=== PATIENT | male | born 1990 | race African-American/Black ===

== ENCOUNTER 2017-01-06 08:36 | Emergency (ER) | payer MEDICAID ==
[~2017-01-06] VITALS: Ht 180.3 cm; Wt 110.0 kg
[2017-01-06 08:59] VITALS: BP 181/124
== END 2017-01-06 09:40 | disposition left against medical advice (07) ==
LOC: ER 08:36
DX: R51 Headache (principal); R42 Dizziness and giddiness; Z53.21 Procedure and treatment not carried out due to patient leaving prior to being seen by health care provider

== ENCOUNTER 2017-01-22 00:39 | Emergency (ER) | payer MEDICAID ==
[~2017-01-22] VITALS: Ht 180.3 cm; Wt 105.0 kg
[2017-01-22] MEDS ORDERED: ONDANSETRON HCL 4MG/2ML VIAL IV STA (01:53)
[2017-01-22] MEDS ORDERED: MORPHINE SULFATE 4 MG/ML CPJ (NOT FOR IM USE) IV STA (01:53)
[2017-01-22] MEDS ORDERED: LABETALOL 5MG/ML SYR 20 MG/4 ML SYRINGE IV ONE (02:00)
[2017-01-22] MEDS ORDERED: DIPHENHYDRAMINE 50MG/ML VIAL IV ONE (02:00)
[2017-01-22] MEDS ORDERED: CLONIDINE 0.1MG TABLET PO STA (02:27)
[2017-01-22] MEDS ORDERED: HYDROCODONE/ACETAMINOPHEN 10/325MG TABLET PO ONE (02:30)
[2017-01-22 03:27] LABS: EOSINOPHILS % 2.3 % (0.0-5.0); HEMATOCRIT. 40.8 % (42.0-52.0); HEMOGLOBIN. 14.3 g/dL (14.0-18.0); LYMPHOCYTES % 38.3 % (20.0-50.0); MEAN CORPUSCULAR VOLUME 85.9 fL (80.0-94.0); MONOCYTES % 8.3 % (2.0-8.0); NEUTROPHILS % 50.1 % (40.0-76.0); PLATELET 227 x1000/uL (130-400); RED BLOOD CELL COUNT 4.75 mill/uL (4.7-6.1); RED CELL DISTRIBUTION WIDTH 13.8 % (11.6-14.6)
[2017-01-22 03:36] LABS: INR 1.1; PROTHROMBIN TIME 10.9 sec (9.4-11.6)
[2017-01-22 03:41] LABS: CARBON DIOXIDE 31 mEq/L (21-32); CHLORIDE 106 mEq/L (98-107); ETHANOL BLOOD < 10 mg/dL
[2017-01-22 03:55] LABS: AMMONIA 35 uMol/L (<32)
[2017-01-22 05:00] VITALS: BP 145/85
== END 2017-01-22 05:00 | disposition home or self-care (01) ==
LOC: ER 00:39
DX: I10 Essential (primary) hypertension (principal); F17.200 Nicotine dependence, unspecified, uncomplicated; R51 Headache; I51.7 Cardiomegaly; F12.10 Cannabis abuse, uncomplicated; Z88.5 Allergy status to narcotic agent
CPT/HCPCS: 36415; 70450; 71010; 80053; 82140; 85025; 85610; 93005; 99285; G0482; Z7610

== ENCOUNTER 2017-01-28 15:25 | Emergency (ER) | payer MEDICAID ==
[~2017-01-28] VITALS: Ht 180.3 cm; Wt 104.0 kg
[2017-01-28 15:56] VITALS: BP 169/115
[2017-01-28] MEDS ORDERED: AZITHROMYCIN 500 MG TABLET PO ONE (21:45)
[2017-01-28] MEDS ORDERED: CEFTRIAXONE SODIUM 250 MG/VIAL IM ONE (21:45)
[2017-01-28 21:57] LABS: BASOPHILS % 0.8 % (0.0-2.0); EOSINOPHILS % 1.9 % (0.0-5.0); HEMOGLOBIN. 13.6 g/dL (14.0-18.0); LYMPHOCYTES % 29.5 % (20.0-50.0); MEAN CORPUSCULAR HEMOGLOBIN 29.2 pg (28.0-32.0); MEAN PLATELET VOLUME 8.9 fl (7.4-10.4); MONOCYTES % 8.1 % (2.0-8.0); NEUTROPHILS % 59.7 % (40.0-76.0); PLATELET 243 x1000/uL (130-400); RED BLOOD CELL COUNT 4.65 mill/uL (4.7-6.1); RED CELL DISTRIBUTION WIDTH 13.6 % (11.6-14.6)
[2017-01-28] MEDS ORDERED: LIDOCAINE HCL 1% 20ML VIAL (Pyxis) INJ MC ONE (22:00)
[2017-01-28 22:12] LABS: CARBON DIOXIDE 30 mEq/L (21-32); CHLORIDE 106 mEq/L (98-107)
== END 2017-01-29 01:26 | disposition home or self-care (01) ==
LOC: ER 15:25
DX: Z20.2 Contact with and (suspected) exposure to infections with a predominantly sexual mode of transmission (principal); I10 Essential (primary) hypertension; F17.210 Nicotine dependence, cigarettes, uncomplicated; F12.10 Cannabis abuse, uncomplicated; Z88.5 Allergy status to narcotic agent
CPT/HCPCS: 36415; 80048; 85025; 96372; 99284; J0696; J3490; Z7610; 87491; 87591

== ENCOUNTER 2017-02-09 05:39 | Emergency (ER) | payer MEDICAID ==
[~2017-02-09] VITALS: Ht 180.3 cm; Wt 105.0 kg
[2017-02-09] MEDS ORDERED: HYDROCODONE/ACETAMINOPHEN 5/325MG TABLET PO ONE (07:00)
[2017-02-09] MEDS ORDERED: CYCLOBENZAPRINE 10MG TABLET PO ONE (07:45)
[2017-02-09] MEDS ORDERED: ONDANSETRON 4MG ODT PO ONE (07:45)
[2017-02-09 08:06] VITALS: BP 142/89
== END 2017-02-09 08:26 | disposition home or self-care (01) ==
LOC: ER 05:39
DX: S20.229A Contusion of unspecified back wall of thorax, initial encounter (principal); I10 Essential (primary) hypertension; F17.200 Nicotine dependence, unspecified, uncomplicated; F12.10 Cannabis abuse, uncomplicated; V49.88XA Car occupant (driver) (passenger) injured in other specified transport accidents, initial encounter; Y93.89 Activity, other specified; Y92.89 Other specified places as the place of occurrence of the external cause; Y99.8 Other external cause status
CPT/HCPCS: 72070; 72100; 99284; Q0162; Z7610

== ENCOUNTER 2017-03-19 23:20 | Emergency (ER) | payer MEDICAID ==
[~2017-03-19] VITALS: Ht 180.3 cm; Wt 104.0 kg
[2017-03-20 07:30] VITALS: BP 157/89
[2017-03-20 08:28] LABS: CHLORIDE 104 mEq/L (98-107)
[2017-03-20 08:33] LABS: CARBON DIOXIDE 26 mEq/L (21-32)
== END 2017-03-20 08:33 | disposition home or self-care (01) ==
LOC: ER 23:20
DX: I10 Essential (primary) hypertension (principal); R07.89 Other chest pain; R51 Headache; Z88.5 Allergy status to narcotic agent
CPT/HCPCS: 36415; 80048; 82962; 93005; 99285

== ENCOUNTER 2017-03-28 | Emergency (ER) | payer MEDICAID ==
[~2017-03-28] VITALS: Ht 180.3 cm; Wt 105.0 kg
[2017-03-28] MEDS ORDERED: PROCHLORPERAZINE MALEATE 10MG TABLET PO ONE (03:30)
[2017-03-28] MEDS ORDERED: DEXAMETHASONE 10 MG/ML VIAL IV ONE (03:30)
[2017-03-28] MEDS ORDERED: SODIUM CHLORIDE 0.9% 1,000 ML IV ONE (03:30)
[2017-03-28] MEDS ORDERED: KETOROLAC 30MG/ML VIAL IV ONE (03:30)
[2017-03-28 05:55] VITALS: BP 133/89
== END 2017-03-28 05:58 | disposition home or self-care (01) ==
LOC: ER
DX: G43.909 Migraine, unspecified, not intractable, without status migrainosus (principal); I10 Essential (primary) hypertension; F17.210 Nicotine dependence, cigarettes, uncomplicated; Z88.5 Allergy status to narcotic agent
CPT/HCPCS: 96361; 96374; 96375; 99285; J1100; J1885; J7030; Z7610; Q0164

== ENCOUNTER 2017-04-14 00:48 | Emergency (ER) | payer MEDICAID ==
[~2017-04-14] VITALS: Ht 180.3 cm; Wt 105.0 kg
[2017-04-14 01:10] VITALS: BP 172/117
== END 2017-04-14 04:00 | disposition left against medical advice (07) ==
LOC: ER 03:11
DX: R51 Headache (principal); Z53.21 Procedure and treatment not carried out due to patient leaving prior to being seen by health care provider

== ENCOUNTER 2017-05-08 22:21 | Emergency (ER) | payer MEDICAID ==
[2017-05-09] MEDS ORDERED: LISI-186 PO (05:01)
== END 2017-05-09 00:32 | disposition left against medical advice (07) ==
LOC: ER 23:23
DX: Z53.21 Procedure and treatment not carried out due to patient leaving prior to being seen by health care provider (principal)

== ENCOUNTER 2017-05-09 04:02 | Emergency (ER) | payer MEDICAID ==
[~2017-05-09] VITALS: Ht 180.3 cm; Wt 105.0 kg
[2017-05-09] MEDS ORDERED: LISI-186 PO (05:01)
[2017-05-09] MEDS ORDERED: ACETAMINOPHEN 500MG TABLET PO ONE (08:45)
[2017-05-09 09:01] LABS: BASOPHILS % 0.9 % (0.0-2.0); EOSINOPHILS % 2.3 % (0.0-5.0); HEMATOCRIT. 45.4 % (42.0-52.0); HEMOGLOBIN. 15.1 g/dL (14.0-18.0); MEAN CORPUSCULAR HEMOGLOBIN 28.6 pg (28.0-32.0); MEAN PLATELET VOLUME 8.9 fl (7.4-10.4); MONOCYTES % 7.7 % (2.0-8.0); NEUTROPHILS % 54.1 % (40.0-76.0); PLATELET 255 x1000/uL (130-400); RED BLOOD CELL COUNT 5.28 mill/uL (4.7-6.1)
[2017-05-09 09:11] LABS: CHLORIDE 106 mEq/L (98-107)
[2017-05-09] MEDS ORDERED: CLONIDINE 0.1MG TABLET PO ONE (09:45)
[2017-05-09 10:40] VITALS: BP 165/99
== END 2017-05-09 11:07 | disposition home or self-care (01) ==
LOC: ER 10:46
DX: G44.89 Other headache syndrome (principal); I10 Essential (primary) hypertension; F12.90 Cannabis use, unspecified, uncomplicated; Z88.5 Allergy status to narcotic agent
CPT/HCPCS: 36415; 80053; 85025; 99284

== ENCOUNTER 2017-06-05 00:39 | Emergency (ER) | payer MEDICAID ==
[~2017-06-05] VITALS: Ht 180.3 cm; Wt 112.0 kg
[~2017-06-05 00:39] MED LIST: LISI-186 PO
[2017-06-05] MEDS ORDERED: ACETAMINOPHEN 325MG TABLET PO ONE (01:15)
[2017-06-05 05:30] VITALS: BP 151/108
== END 2017-06-05 05:45 | disposition home or self-care (01) ==
LOC: ER 00:39
DX: I10 Essential (primary) hypertension (principal); R51 Headache; M25.531 Pain in right wrist; F17.200 Nicotine dependence, unspecified, uncomplicated; Z88.5 Allergy status to narcotic agent
CPT/HCPCS: 73110; 99284; Z7610

== ENCOUNTER 2017-08-17 00:04 | Emergency (ER) | payer MEDICAID ==
[~2017-08-17] VITALS: Ht 180.3 cm; Wt 114.0 kg
[2017-08-17] MEDS ORDERED: LISINOPRIL 10MG TABLET PO ONE (02:30)
[2017-08-17] MEDS ORDERED: METOCLOPRAMIDE HCL 10MG TABLET PO ONE (02:30)
[2017-08-17] MEDS ORDERED: IBUPROFEN 800MG TABLET PO ONE (02:30)
[2017-08-17 03:12] VITALS: BP 152/92
== END 2017-08-17 03:12 | disposition home or self-care (01) ==
LOC: ER 00:04
DX: I10 Essential (primary) hypertension (principal); Z88.5 Allergy status to narcotic agent
CPT/HCPCS: 99284; Z7610; J8597

== ENCOUNTER 2017-11-26 01:58 | Emergency (ER) | payer MEDICAID ==
[~2017-11-26] VITALS: Ht 180.3 cm; Wt 109.0 kg
[2017-11-26] MEDS ORDERED: KETOROLAC 60MG/2ML VIAL IM ONE (02:45)
[2017-11-26 04:00] VITALS: BP 141/81
== END 2017-11-26 04:00 | disposition home or self-care (01) ==
LOC: ER 01:58
DX: M54.9 Dorsalgia, unspecified (principal); I10 Essential (primary) hypertension; F17.200 Nicotine dependence, unspecified, uncomplicated; F12.10 Cannabis abuse, uncomplicated; Z88.6 Allergy status to analgesic agent
CPT/HCPCS: 96372; 99283; J1885

== ENCOUNTER 2018-10-15 17:30 | Emergency (ER) | payer MEDICAID ==
[~2018-10-15] VITALS: Ht 180.3 cm; Wt 110.0 kg
[2018-10-15] MEDS ORDERED: SODIUM CHLORIDE 0.9% 1,000 ML IV ONE (18:32)
[2018-10-15] MEDS ORDERED: KETOROLAC 30MG/ML VIAL IV STA (18:32)
[2018-10-15] MEDS ORDERED: METOCLOPRAMIDE HCL 10MG/2ML VIAL IV ONE (18:45)
[2018-10-15 19:01] LABS: BASOPHILS % 1.1 % (0.0-2.0); EOSINOPHILS % 1.3 % (0.0-5.0); HEMATOCRIT. 47.5 % (42.0-52.0); HEMOGLOBIN. 16.4 g/dL (14.0-18.0); MEAN CORPUSCULAR HEMOGLOBIN 29.5 pg (28.0-32.0); MEAN CORPUSCULAR VOLUME 85.7 fL (80.0-94.0); MEAN PLATELET VOLUME 9.2 fl (7.4-10.4); MONOCYTES % 6.7 % (2.0-8.0); NEUTROPHILS % 56.9 % (40.0-76.0); PLATELET 271 x1000/uL (130-400); RED BLOOD CELL COUNT 5.55 mill/uL (4.7-6.1); RED CELL DISTRIBUTION WIDTH 13.3 % (11.6-14.6)
[2018-10-15 19:07] LABS: CHLORIDE 105 mEq/L (98-107)
[2018-10-15 19:12] LABS: ETHANOL BLOOD < 10 mg/dL
[2018-10-15 19:55] LABS: CLARITY URINE CLEAR (CLEAR); COLOR URINE YELLOW (YELLOW); KETONES URINE 1+ (NEGATIVE); LEUKOCYTE ESTERASE URINE NEGATIVE (NEGATIVE); NITRITE URINE NEGATIVE (NEGATIVE); OCCULT BLOOD URINE TRACE (NEGATIVE); PROTEIN URINE NEGATIVE (NEGATIVE); SPECIFIC GRAVITY URINE 1.016 (1.005-1.030); UROBILINOGEN URINE 0.2 E.U./dL (0.2-1.0)
[2018-10-15 19:59] VITALS: BP 162/98
[2018-10-15 20:27] LABS: *AMPHETAMINES SCREEN URINE NEGATIVE (NEGATIVE); *BARBITURATES SCREEN URINE NEGATIVE (NEGATIVE); *BENZODIAZEPINES SCREEN URINE NEGATIVE (NEGATIVE)
[2018-10-15 20:28] LABS: *COCAINE SCREEN URINE NEGATIVE (NEGATIVE); CANNABINOID URINE SCREEN PRESUMTIVE POSITIVE (NEGATIVE); METHADONE URINE SCREEN NEGATIVE (NEGATIVE); OPIATES URINE SCREEN NEGATIVE (NEGATIVE); PHENCYCLIDINE URINE SCREEN NEGATIVE (NEGATIVE)
== END 2018-10-15 20:01 | disposition home or self-care (01) ==
LOC: ER 17:30
DX: R51 Headache (principal)
CPT/HCPCS: 36415; 80053; 80305; 80320; 81003; 85025; 96361; 96374; 96375; 99283; J1885; J2765; J7030; G0480

== ENCOUNTER 2018-10-31 00:16 | Emergency (ER) | payer MEDICAID ==
[~2018-10-31] VITALS: Ht 180.3 cm; Wt 114.0 kg
[2018-10-31] MEDS ORDERED: KETOROLAC 60MG/2ML VIAL IM STA (03:02)
[2018-10-31] MEDS ORDERED: AZITHROMYCIN 500 MG TABLET PO ONE (03:15)
[2018-10-31] MEDS ORDERED: CEFTRIAXONE SODIUM 250 MG/VIAL IM ONE (03:15)
[2018-10-31] MEDS ORDERED: CLONIDINE 0.1MG TABLET PO ONE (03:15)
[2018-10-31 04:51] LABS: CLARITY URINE CLEAR (CLEAR); COLOR URINE YELLOW (YELLOW); KETONES URINE NEGATIVE (NEGATIVE); LEUKOCYTE ESTERASE URINE NEGATIVE (NEGATIVE); NITRITE URINE NEGATIVE (NEGATIVE); OCCULT BLOOD URINE NEGATIVE (NEGATIVE); PROTEIN URINE NEGATIVE (NEGATIVE); SPECIFIC GRAVITY URINE 1.018 (1.005-1.030); UROBILINOGEN URINE 0.2 E.U./dL (0.2-1.0)
[2018-10-31 05:34] VITALS: BP 157/98
== END 2018-10-31 05:30 | disposition home or self-care (01) ==
LOC: ER 00:16
DX: N48.1 Balanitis (principal); I10 Essential (primary) hypertension; G44.89 Other headache syndrome; F12.10 Cannabis abuse, uncomplicated; Z88.5 Allergy status to narcotic agent; Z79.899 Other long term (current) drug therapy
CPT/HCPCS: 81003; 96372; 99283; J0696; J1885

== ENCOUNTER 2018-11-24 06:00 | Emergency (ER) | payer MEDICAID ==
[~2018-11-24] VITALS: Ht 180.3 cm; Wt 114.0 kg
[2018-11-24] MEDS ORDERED: KETOROLAC 30MG/ML VIAL IV STA (07:14)
[2018-11-24] MEDS ORDERED: SODIUM CHLORIDE 0.9% 1,000 ML IV ONE ×2 (07:14→07:15)
[2018-11-24] MEDS ORDERED: DIPHENHYDRAMINE 50MG/ML VIAL IV ONE (07:15)
[2018-11-24] MEDS ORDERED: METOCLOPRAMIDE HCL 10MG/2ML VIAL IV ONE (07:15)
[2018-11-24] MEDS ORDERED: KETOROLAC 60MG/2ML VIAL IM ONE (07:30)
[2018-11-24] MEDS ORDERED: HYDROCODONE/ACETAMINOPHEN 5/325MG TABLET PO ONE (07:30)
[2018-11-24 08:35] VITALS: BP 136/74
== END 2018-11-24 08:36 | disposition home or self-care (01) ==
LOC: ER 06:00
DX: R51 Headache (principal); I10 Essential (primary) hypertension; F17.210 Nicotine dependence, cigarettes, uncomplicated; F12.10 Cannabis abuse, uncomplicated; Z88.5 Allergy status to narcotic agent
CPT/HCPCS: 99283; J7030; J1885

== ENCOUNTER 2020-04-17 11:35 | Emergency (ER) | payer MEDICAID ==
[~2020-04-17] VITALS: Ht 180.3 cm; Wt 130.0 kg
[2020-04-17] MEDS ORDERED: ACETAMINOPHEN WITH CODEINE 300/30MG TABLET PO STA (12:34)
[2020-04-17] MEDS ORDERED: AMLODIPINE 5MG TABLET PO ONE (12:45)
[2020-04-17 13:00] LABS: BASOPHILS % 1.2 % (0.0-2.0); HEMATOCRIT. 47.1 % (42.0-52.0); HEMOGLOBIN. 16.5 g/dL (14.0-18.0); MEAN CORPUSCULAR VOLUME 85.8 fL (80.0-94.0); MONOCYTES % 7.3 % (2.0-8.0); NEUTROPHILS % 67.5 % (40.0-76.0); PLATELET 272 x1000/uL (130-400); RED BLOOD CELL COUNT 5.49 mill/uL (4.7-6.1); RED CELL DISTRIBUTION WIDTH 13.7 % (11.6-14.6)
[2020-04-17 13:11] LABS: CHLORIDE 107 mEq/L (98-107)
[2020-04-17] MEDS ORDERED: AMLO2.5T45 MT (13:36)
[2020-04-17 13:55] VITALS: BP 191/102
== END 2020-04-17 13:59 | disposition home or self-care (01) ==
LOC: ER 11:35
DX: I10 Essential (primary) hypertension (principal); R51.9 Headache, unspecified; F12.10 Cannabis abuse, uncomplicated; Z88.6 Allergy status to analgesic agent
CPT/HCPCS: 36415; 80053; 85025; 93005; 99285

== ENCOUNTER 2020-07-30 11:28 | Emergency (ER) | payer OTHER ==
[~2020-07-30] VITALS: Ht 180.3 cm; Wt 125.0 kg
[~2020-07-30 11:28] MED LIST changes: +AMLO2.5T45 MT
[2020-07-30] MEDS ORDERED: NIFEDIPINE 10MG CAPSULE PO ONE (13:15)
[2020-07-30] MEDS ORDERED: LISINOPRIL 10MG TABLET PO ONE (13:15)
[2020-07-30] MEDS ORDERED: HYDRALAZINE HCL 25MG TABLET PO ONE (13:45)
[2020-07-30] MEDS ORDERED: ACETAMINOPHEN 325MG TABLET PO ONE (14:30)
[2020-07-30 14:56] LABS: *AMPHETAMINES SCREEN URINE NEGATIVE (NEGATIVE); *BARBITURATES SCREEN URINE NEGATIVE (NEGATIVE); *BENZODIAZEPINES SCREEN URINE NEGATIVE (NEGATIVE); *COCAINE SCREEN URINE NEGATIVE (NEGATIVE); METHADONE URINE SCREEN NEGATIVE (NEGATIVE)
[2020-07-30 14:57] LABS: CANNABINOID URINE SCREEN PRESUMTIVE POSITIVE (NEGATIVE); OPIATES URINE SCREEN NEGATIVE (NEGATIVE); PHENCYCLIDINE URINE SCREEN NEGATIVE (NEGATIVE)
[2020-07-30 15:25] LABS: BASOPHILS % 0.8 % (0.0-2.0); EOSINOPHILS % 1.2 % (0.0-5.0); HEMATOCRIT. 52.3 % (42.0-52.0); HEMOGLOBIN. 17.4 g/dL (14.0-18.0); MEAN CORPUSCULAR HEMOGLOBIN 28.6 pg (28.0-32.0); MEAN CORPUSCULAR VOLUME 85.9 fL (80.0-94.0); MEAN PLATELET VOLUME 8.8 fl (7.4-10.4); MONOCYTES % 5.9 % (2.0-8.0); NEUTROPHILS % 67.1 % (40.0-76.0); PLATELET 286 x1000/uL (130-400); RED BLOOD CELL COUNT 6.09 mill/uL (4.7-6.1); RED CELL DISTRIBUTION WIDTH 13.4 % (11.6-14.6)
[2020-07-30 15:29] LABS: CHLORIDE 105 mEq/L (98-107)
[2020-07-30 15:59] VITALS: BP 180/133
[2020-07-30] MEDS ORDERED: HYDR-4134 MT (16:40)
[2020-07-30] MEDS ORDERED: AMLO5TAB88 MT (16:40)
[2020-07-30] MEDS ORDERED: LISI10TA26 MT (16:40)
[2020-07-30] MEDS ORDERED: ONDANSETRON 4MG ODT PO ONE (17:00)
== END 2020-07-30 17:00 | disposition home or self-care (01) ==
LOC: ER 11:28
DX: I10 Essential (primary) hypertension (principal); R51.9 Headache, unspecified; F12.10 Cannabis abuse, uncomplicated; F17.210 Nicotine dependence, cigarettes, uncomplicated; Z91.14 Patient's other noncompliance with medication regimen; Z88.5 Allergy status to narcotic agent
CPT/HCPCS: 36415; 70450; 80053; 80305; 84484; 85025; 93005; 99285; Q0162; Z7610

== ENCOUNTER 2021-05-11 02:17 | Emergency (ER) | payer OTHER ==
[~2021-05-11] VITALS: Ht 180.3 cm; Wt 109.0 kg
[~2021-05-11 02:17] MED LIST changes: +AMLO5TAB88 MT; +HYDR-4134 MT; +LISI10TA26 MT
[2021-05-11 03:11] VITALS: BP 244/179
[2021-05-11] MEDS ORDERED: CEFTRIAXONE SODIUM 500 MG/VIAL IM ONE (03:15)
[2021-05-11] MEDS ORDERED: DOXYCYCLINE HYCLATE 100MG CAPSULE PO ONE (03:15)
[2021-05-11] MEDS ORDERED: DOXY-326 MT (03:41)
[2021-05-11] MEDS ORDERED: LISI-186 PO (03:41)
== END 2021-05-11 04:00 | disposition left against medical advice (07) ==
LOC: ER 02:17
DX: I10 Essential (primary) hypertension (principal); F12.10 Cannabis abuse, uncomplicated; Z20.2 Contact with and (suspected) exposure to infections with a predominantly sexual mode of transmission; Z91.14 Patient's other noncompliance with medication regimen; Z88.6 Allergy status to analgesic agent
CPT/HCPCS: 96372; 99283; J0696